=== PATIENT | female | born 1990 | race Caucasian/White ===

== ENCOUNTER 2018-07-19 13:47 | Emergency (ER) | payer MEDICAID, SELFPAY ==
[2018-07-19 13:51] VITALS: BP 118/59; PULSE 70; RESP 16; TEMP 36.7; O2SAT 99; BMI 19.8
--- NOTE | 2018-07-19 15:02 | PC.NURSE ---
Pt has healing wound on left buttocks,multiple circular sores,tender and warm to touch. Pt also has swollen lymph node bilateral groin. Pt has had generalized pain,chills,decreased appetite
--- NOTE | 2018-07-19 16:24 | ED.SKABFB ---
HPI - Skin/Abscess/Foreign Bdy <LISANDRA Iraheta-BC - Last Filed: 07/19/18 19:07> General Chief complaint: Skin/Abscess/Foreign Body Stated complaint: lymph infection in groin, night sweats, topical ra Time Seen by Provider: 07/19/18 15:37 Source: patient Mode of arrival: ambulatory Limitations: no limitations History of Present Illness HPI narrative: The patient is a 28-year-old female nonsmoker presents with her friend for chief complaint of fatigue, weight loss over the past 2 weeks, inflamed lymph nodes in her groin as well as a rash on her left buttock. She states that she feels inflamed lymph nodes in the left side of her groin, as well as a small 1 on her right. She complains of generalized fatigue and sore throat. she has seen her primary care provider for this, and is waiting on lab work. She states she had a pelvic exam and STI testing 2 weeks ago. She denies any further STI concerns. She was recently treated for bacterial vaginosis with Flagyl, for which she just finished up her prescription. She states that she has had the blister a rash on her buttock for 3 weeks. She is waiting on a viral culture done by her primary care on [facility]. She denies any vomiting, nausea or diarrhea or fever. She denies any dysuria urgency or frequency. She denies any vaginal discharge or vaginal itching or other vaginal complaints. Related Data Allergies Allergy/AdvReac Type Severity Reaction Status Date / Time No Known Drug Allergies Allergy Verified 07/19/18 13:58 Review of Systems <YANELIS Iraheta - Last Filed: 07/19/18 19:07> Review of Systems GENERAL: See HPI HEENT: Denies sinus pain, ear pain, sore throat, difficulty swallowing, dizziness. RESPIRATORY: Denies dyspnea, cough, wheezing, hemoptysis, sputum. CARDIOVASCULAR: Denies chest pain, palpitations, orthopnea, edema, GASTROINTESTINAL: Denies nausea, vomiting, abdominal pain, diarrhea, constipation, melena. : Denies dysuria, frequency, incontinence, hematuria, urinary retention. MUSCULOSKELETAL: denies weakness, joint pain, or bony pain SKIN: See HPI NEUROLOGIC: Denies weakness, headache, numbness, change in speech, confusion, seizures, incoordination. PSYCHIATRIC: No concerning psychosocial issues. 12 point review of systems is negative except for those stated above Exam <YANELIS Iraheta - Last Filed: 07/19/18 19:07> Narrative Exam Narrative: GENERAL: This is a well-nourished, well-developed patient, in no acute distress HEAD: Atraumatic. Normocephalic. No temporal or scalp tenderness. EYES: Pupils equal round and reactive. Extraocular motions intact. No scleral icterus. No injection or drainage. ENT: Nose without bleeding, purulent drainage or septal hematoma. Throat without erythema, tonsillar hypertrophy or exudate. Uvula midline. Airway patent. NECK: Trachea midline. No JVD or lymphadenopathy. Supple, nontender, no meningeal signs. CARDIOVASCULAR: Regular rate and rhythm without murmurs, gallops, or rubs. RESPIRATORY: Clear to auscultation. Breath sounds equal bilaterally. No wheezes, rales, or rhonchi. No cough. No increased respiratory effort. No accessory muscle use. GASTROINTESTINAL: Abdomen soft, non-tender, nondistended. No hepato-splenomegaly, or palpable masses. No guarding. active bowel sounds all 4 quadrants. Palpable lymph nodes left inguinal. Approximately 1 cm. EXTREMITIES: No clubbing, cyanosis, or edema. No joint tenderness, effusion, or edema noted. BACK: Nontender without deformity or crepitance. No flank tenderness. NEURO: AOx3. SKIN: 2 cm of dried pustular rash noted left buttock. No spreading erythema. No obvious drainage. Initial Vital Signs Initial Vital Signs: Vital Signs Temperature 98.0 F 07/19/18 13:51 Pulse Rate 70 07/19/18 13:51 Respiratory Rate 16 07/19/18 13:51 Blood Pressure 118/59 L 07/19/18 13:51 Pulse Oximetry 99 07/19/18 13:51 <Laurel Puente DO - Last Filed: 07/22/18 09:48> Initial Vital Signs Initial Vital Signs: Vital Signs Temperature 98.0 F 07/19/18 13:51 Pulse Rate 70 07/19/18 13:51 Respiratory Rate 16 07/19/18 13:51 Blood Pressure 118/59 L 07/19/18 13:51 Pulse Oximetry 99 07/19/18 13:51 Course <YANELIS Iraheta - Last Filed: 07/19/18 19:07> Orders Ordered: ED Orders 07/19/18 16:35 Complete Blood Count AUTO DIFF Stat Comprehensive Metabolic Panel Stat Monotest Stat Vital Signs - 8 hr 07/19/18 13:51 07/19/18 17:57 Temperature 98.0 F Pulse Rate 70 67 Respiratory Rate 16 18 Blood Pressure 118/59 L Blood Pressure [Right Arm] 141/83 H Pulse Oximetry 99 100 <Laurel Puente DO - Last Filed: 07/22/18 09:48> Orders Ordered: ED Orders 07/19/18 16:35 Complete Blood Count AUTO DIFF Stat Comprehensive Metabolic Panel Stat Monotest Stat Vital Signs - 8 hr 07/19/18 13:51 07/19/18 17:57 Temperature 98.0 F Pulse Rate 70 67 Respiratory Rate 16 18 Blood Pressure 118/59 L Blood Pressure [Right Arm] 141/83 H Pulse Oximetry 99 100 MDM - Skin/Abscess/Foreign Bdy <LISANDRA Iraheta- - Last Filed: 07/19/18 19:07> Lab Data Result diagrams: 07/19/18 16:35 07/19/18 16:35 Lab Results 07/19/18 07/19/18 07/19/18 Range/Units 16:35 16:35 16:35 WBC 7.2 (4.5-11.0) X10^3/uL RBC 4.36 (4.0-5.2) X10^6/uL Hgb 14.5 (12.0-16.0) g/dL Hct 43.1 (36-46) % MCV 98.8 (80-100) fL MCH 33.2 (26-34) PG MCHC 33.6 (30-36) % RDW 11.9 (11.6-14.8) % Plt Count 313 (150-400) X10^3/uL Neut % (Auto) 57.2 (50-75) % Lymph % (Auto) 32.5 (25-40) % Nicholas % (Auto) 6.7 (3-14) % Eos % (Auto) 2.7 (2-4) % Baso % (Auto) 0.9 (0-2) % Neut # (Auto) 4100 (0542-3808) /uL Lymph # (Auto) 2300 (5289-1825) /uL Nicholas # (Auto) 500 (0-900) /uL Eos # (Auto) 200 (0-450) /uL Baso # (Auto) 100 (0-100) /uL Sodium 137 (137-145) mmol/L Potassium 3.9 (3.4-5.1) mmol/L Chloride 104 (98-107) mmol/L Carbon Dioxide 25 (22-32) mmol/L BUN 12 (7-17) mg/dL Creatinine 0.70 (0.52-1.04) mg/dL Estimated GFR > 60.0 (>60) mL/min BUN/Creatinine Ratio 17.1 (6-22) Glucose 88 (70-100) mg/dL Calcium 9.3 (8.4-10.2) mg/dL Total Bilirubin 0.3 (0.2-1.3) mg/dL AST 20 (14-36) IU/L ALT 23 (9-52) IU/L Alkaline Phosphatase 55 (38-126) U/L Total Protein 6.8 (6.3-8.2) g/dL Albumin 4.3 (3.5-5.0) g/dL Globulin 2.5 (1.7-4.1) g/dL Albumin/Globulin Ratio 1.7 (1.0-2.8) Monoscreen Negative (Negative) Point of Care Testing Test Results Negative Urine Dip Bedside Urine Glucose Negative Bedside Urine Bilirubin - Negative Bedside Urine Ketone - Negative Urine Specific [place] 1.020 Bedside Urine Occult Blood - Negative Bedside Urine pH 7.5 Bedside Urine Protein - Negative Bedside Urine Urobilinogen - Negative Bedside Urine Nitrite - Negative Bedside Urine Leukocytes - Negative Esterase MDM Narrative Medical decision making narrative: The patient is a 28-year-old female who presents chief complaint of swollen lymph nodes, rash, fatigue. Her exam is consistent with possible herpes rash, but she declines treatment with antivirals until the culture returns. Otherwise she has a normal CBC, normal CMP and a negative Monospot. I discussed at length that she needs to follow up with primary care provider. Discussed return precautions the emergency department noting shortness of breath chest pain or acute concerns. The patient heard has planned follow-up with her primary care on Saturday. I encouraged her to keep and attend this appointment. Patient and friend have no questions or concerns upon discharge. <Laurel Puente, DO - Last Filed: 07/22/18 09:48> Lab Data Lab Results 07/19/18 07/19/18 07/19/18 Range/Units 16:35 16:35 16:35 WBC 7.2 (4.5-11.0) X10^3/uL RBC 4.36 (4.0-5.2) X10^6/uL Hgb 14.5 (12.0-16.0) g/dL Hct 43.1 (36-46) % MCV 98.8 (80-100) fL MCH 33.2 (26-34) PG MCHC 33.6 (30-36) % RDW 11.9 (11.6-14.8) % Plt Count 313 (150-400) X10^3/uL Neut % (Auto) 57.2 (50-75) % Lymph % (Auto) 32.5 (25-40) % Nicholas % (Auto) 6.7 (3-14) % Eos % (Auto) 2.7 (2-4) % Baso % (Auto) 0.9 (0-2) % Neut # (Auto) 4100 (2193-0496) /uL Lymph # (Auto) 2300 (4463-5667) /uL Nicholas # (Auto) 500 (0-900) /uL Eos # (Auto) 200 (0-450) /uL Baso # (Auto) 100 (0-100) /uL Sodium 137 (137-145) mmol/L Potassium 3.9 (3.4-5.1) mmol/L Chloride 104 (98-107) mmol/L Carbon Dioxide 25 (22-32) mmol/L BUN 12 (7-17) mg/dL Creatinine 0.70 (0.52-1.04) mg/dL Estimated GFR > 60.0 (>60) mL/min BUN/Creatinine Ratio 17.1 (6-22) Glucose 88 (70-100) mg/dL Calcium 9.3 (8.4-10.2) mg/dL Total Bilirubin 0.3 (0.2-1.3) mg/dL AST 20 (14-36) IU/L ALT 23 (9-52) IU/L Alkaline Phosphatase 55 (38-126) U/L Total Protein 6.8 (6.3-8.2) g/dL Albumin 4.3 (3.5-5.0) g/dL Globulin 2.5 (1.7-4.1) g/dL Albumin/Globulin Ratio 1.7 (1.0-2.8) Monoscreen Negative (Negative) Point of Care Testing Test Results Negative Urine Dip Bedside Urine Glucose Negative Bedside Urine Bilirubin - Negative Bedside Urine Ketone - Negative Urine Specific [place] 1.020 Bedside Urine Occult Blood - Negative Bedside Urine pH 7.5 Bedside Urine Protein - Negative Bedside Urine Urobilinogen - Negative Bedside Urine Nitrite - Negative Bedside Urine Leukocytes - Negative Esterase Discharge Plan Departure Patient Disposition: Home Clinical Impression: Rash, Lymphadenopathy Discharge Date/Time: 07/19/18 18:14 Interventions: ED Discharge Assessment Last Done: 07/19/18 18:13 Instructions: DI for Rash, DI for Lymphadenopathy Activity Restrictions/Additional Instructions: Please follow up with primary care provider as we discussed on Saturday. We are sending off a viral culture. Please rest, push fluids. You had a negative mono test, normal CBC and normal CMP. Please come back to emergency department if you have any acute concerns such as chest pain or shortness of breath. please follow up with primary care provider on Saturday as we discussed. Referrals: Andre Landon MD [Primary Care Provider] - <Laurel Puente DO - Last Filed: 07/22/18 09:48> Cosign ED Attending Cosnoelature Attestation: I was immediately available in the department for consultation. This documentation has been reviewed and I agree with assessment and plan. Supervised by Lauerl Puente DO
[2018-07-19 16:48] LABS: Add Manual Diff / Slide Review NO; Basophils Absolute Auto 100 /uL (0-100); Basophils Percent Auto 0.9 % (0-2); Eosinophils Absolute Auto 200 /uL (0-450); Eosinophils Percent Auto 2.7 % (2-4); Hematocrit 43.1 % (36-46); Hemoglobin 14.5 g/dL (12.0-16.0); Lymphocytes Absolute Auto 2300 /uL (1100-4500); Lymphocytes Percent Auto 32.5 % (25-40); Mean Corpuscular HGB Conc 33.6 % (30-36); Mean Corpuscular Hemoglobin 33.2 PG (26-34); Mean Corpuscular Volume 98.8 fL (80-100); Monocytes Absolute Auto 500 /uL (0-900); Monocytes Percent Auto 6.7 % (3-14); Neutrophils Absolute Auto 4100 /uL (1500-7000); Neutrophils Percent Auto 57.2 % (50-75); Platelet Count 313 X10^3/uL (150-400); Red Blood Cell Count 4.36 X10^6/uL (4.0-5.2); Red Cell Distribution Width 11.9 % (11.6-14.8); White Blood Cell Count 7.2 X10^3/uL (4.5-11.0)
[2018-07-19 17:04] LABS: Alanine Aminotransferase 23 IU/L (9-52); Albumin 4.3 g/dL (3.5-5.0); Albumin Globulin Ratio 1.7 (1.0-2.8); Alkaline Phosphatase 55 U/L (38-126); Aspartate Aminotransferase 20 IU/L (14-36); BUN Creatinine Ratio 17.1 (6-22); Bilirubin Total 0.3 mg/dL (0.2-1.3); Blood Urea Nitrogen 12 mg/dL (7-17); Calcium 9.3 mg/dL (8.4-10.2); Carbon Dioxide 25 mmol/L (22-32); Chloride 104 mmol/L (98-107); Estimated Glomerular Filt Rate > 60.0 mL/min (>60); Globulin 2.5 g/dL (1.7-4.1); Glucose 88 mg/dL (70-100); HEMOLYSIS < 15 (0-50); Potassium 3.9 mmol/L (3.4-5.1); Sodium 137 mmol/L (137-145); Total Protein 6.8 g/dL (6.3-8.2)
[2018-07-19 17:23] LABS: Monotest Negative (Negative)
[2018-07-19 17:57] VITALS: BP 141/83; PULSE 67; RESP 18; O2SAT 100
== END 2018-07-19 18:14 | disposition home or self-care (01) ==
PROVIDERS: Emergency Provider Nurse Practitioner Family; PCP Family Medicine
DX: R59.1 Generalized enlarged lymph nodes (principal); R21 Rash and other nonspecific skin eruption; R53.83 Other fatigue
CPT/HCPCS: 36415; 80053; 81003; 81025; 85025; 86318; 87252; 99282; 99283